=== PATIENT | male | born 1975 | race Caucasian/White ===

== ENCOUNTER 2018-01-13 15:39 | Emergency (ER) | payer SELFPAY | END 2018-01-13 15:45 | disposition left against medical advice (07) | LOC: ED 15:39 | DX: Z53.21 Procedure and treatment not carried out due to patient leaving prior to being seen by health care provider (principal) ==

== ENCOUNTER 2018-03-13 19:21 | Emergency (ER) | payer MEDICAID ==
[2018-03-13 19:39] VITALS: BP 147/92
== END 2018-03-13 21:11 | disposition left against medical advice (07) ==
LOC: ED 19:21
DX: S61.211A Laceration without foreign body of left index finger without damage to nail, initial encounter (principal); W27.8XXA Contact with other nonpowered hand tool, initial encounter; Z53.21 Procedure and treatment not carried out due to patient leaving prior to being seen by health care provider

== ENCOUNTER 2018-06-04 21:44 | Emergency (ER) | payer MEDICAID ==
[2018-06-04] MEDS: IPRATROPIUM/ALBUTEROL 3 ML NEB INH STA (22:22)
--- NOTE | 2018-06-04 22:28 | ED Physician Documentation ---
History of Present Illness - Stated complaint Stated Complaint: SOA - Chief complaint Chief Complaint: Resp - Additonal information Additional information: hx from pt 42 male has asthma out of inhaler recent cough NVD no fever BLAKE body ache + sick contact Review of Systems Constitutional: denies: Fever, Chills, Myalgias Cardiac: denies: Chest pain / pressure Respiratory: reports: Cough, Wheezing GI: reports: Vomiting, Diarrhea Endocrine: denies: Easy bruising / bleeding Immunocompromised: denies: Immunocompromised PD PAST MEDICAL HISTORY - Past Medical History Past Medical History: Yes Cardiovascular: None Respiratory: Asthma Endocrine/Autoimmune: None GI: None : None Psych: None Musculoskeletal: None Derm: None - Past Surgical History Past Surgical History: No HEENT: Myringotomy (tubes) - Present Medications Home Medications: Ambulatory Orders Medication Instructions Recorded Confirmed Albuterol Sulfate [Ventolin Hfa] 2 puffs IH Q4HR PRN 12/16/15 12/16/15 Albuterol Sulfate [Proair Hfa 2 puffs INH Q4H PRN #1 inhaler 06/04/18 Inhaler] predniSONE [Deltasone] 60 mg PO DAILY #5 tablet 06/04/18 - Allergies Allergies/Adverse Reactions: Allergies Allergy/AdvReac Type Severity Reaction Status Date / Time No Known Drug Allergies Allergy Verified 06/04/18 22:09 - Social History Does the pt smoke?: Yes Smoking Status: Current every day smoker Does the pt drink ETOH?: Yes Does the pt have substance abuse?: No - Immunizations Immunizations are current?: Yes Immunizations: TDAP current <10years - POLST Patient has POLST: No PD ED PE NORMAL - Vitals Vital signs reviewed: Yes - Neck Neck: Supple, no meningeal sign - Cardiac Cardiac: RRR - Respiratory Respiratory: No respiratory distress, Other (giulia wheezing) - Derm Derm: Normal color - Extremities Extremities: No deformity, No edema, No calf tenderness / cord - Neuro Neuro: Alert and oriented X 3 Eye Opening: Spontaneous Motor: Obeys Commands Verbal: Oriented GCS Score: 15 Results - Vitals Vitals: Vital Signs - 24 hr 06/04/18 06/04/18 06/04/18 22:00 22:22 23:50 Temperature 36.2 C L Heart Rate 61 82 82 Respiratory 24 24 18 Rate Blood Pressure 147/110 H 134/98 H O2 Saturation 97 94 Oxygen O2 Source Room air - Labs Labs: Laboratory Tests 06/04/18 23:10 Influenza A (Rapid) Negative Influenza B (Rapid) Negative - Rads (name of study) CXR Radiology: See rad report (stable /neg) PD MEDICAL DECISION MAKING - ED course ED course: much better after nebs Departure - Departure Disposition: Home, Self Care Clinical Impression: Bronchitis Asthma Qualifiers: Asthma severity: unspecified severity Asthma persistence: intermittent Asthma complication type: with acute exacerbation Qualified Code(s): J45.21 - Mild intermittent asthma with (acute) exacerbation Condition: Good Instructions: ED Bronchitis Asthmatic Prescriptions: Albuterol Sulfate [Proair Hfa Inhaler] 2 puffs INH Q4H PRN #1 inhaler PRN Reason: Shortness Of Air/Wheezing predniSONE [Deltasone] 60 mg PO DAILY #5 tablet Comments: The xray shows no pneumonia and the flu swabs were negative. I have prescribed steroids and a new inhaler but antibiotics are not indicated Please get your blood pressure rechecked when you are feeling better - it was high today Forms: Activity restrictions
[2018-06-04] MEDS: DEXAMETHASONE 10 MG/ML VIAL PO STA (22:35)
[2018-06-04] MEDS ORDERED: CHERRY SYRUP 10 ML UDC PO ONE (22:37)
--- NOTE | 2018-06-04 23:02 | XRAY Report ---
Reason: cough wheeze Procedure Date: 06/04/2018 Accession Number: [id number] / [id number] Procedure: XR - Chest 2 View X-Ray CPT Code: 66293 FULL RESULT: EXAM: CHEST RADIOGRAPHY EXAM DATE: 06/04/2018 10:55 PM. CLINICAL HISTORY: Cough, wheeze. COMPARISON: CHEST 2 VIEW PA/LAT 08/21/2013 6:11 PM. TECHNIQUE: 2 views. FINDINGS: Lungs/Pleura: No focal opacities evident. No pleural effusion. No pneumothorax. Normal volumes. Mediastinum: Heart and mediastinal contours are unremarkable. Other: None. IMPRESSION: Stable negative 2-view chest radiography. RADIA
[2018-06-04 23:52] VITALS: BP 134/98
== END 2018-06-04 23:50 | disposition home or self-care (01) ==
LOC: ED 21:44
DX: J40 Bronchitis, not specified as acute or chronic (principal); J45.21 Mild intermittent asthma with (acute) exacerbation; F17.200 Nicotine dependence, unspecified, uncomplicated
CPT/HCPCS: 71046; 87275; 87276; 94640; 99283

== ENCOUNTER 2019-02-11 17:25 | Emergency (ER) | payer MEDICAID ==
--- NOTE | 2019-02-11 17:36 | ED Physician Documentation ---
History of Present Illness - Stated complaint Stated Complaint: TOOTH PX - Chief complaint Chief Complaint: Heent - History obtained from History obtained from: Patient - Additonal information Additional information: Patient is a 43-year-old male presenting with left upper molar discomfort over the past several weeks without particular inciting incident or injury. Patient reports he has not been to the dentist for several years, but has appointment on Saturday, which is less than 2 days from now. Patient reports facial swelling and erythema to that area, but no significant gum changes. Patient denies fever, difficulty with swallowing or breathing. Patient states pain refers back to his left ear and jaw. Patient also requesting refill for albuterol inhaler. No other improving or worsening factors noted. Review of Systems Constitutional: denies: Fever Ears: reports: Ear pain. denies: Drainage/discharge Throat: reports: Dental pain / toothache. denies: Sore throat Respiratory: denies: Dyspnea PD PAST MEDICAL HISTORY - Past Medical History Cardiovascular: None Respiratory: Asthma Endocrine/Autoimmune: None GI: None : None Psych: None Musculoskeletal: None Derm: None - Past Surgical History Past Surgical History: No HEENT: Myringotomy (tubes) - Present Medications Home Medications: Ambulatory Orders Medication Instructions Recorded Confirmed Albuterol Sulfate [Ventolin Hfa] 2 puffs IH Q4HR PRN 12/16/15 12/16/15 Albuterol Sulfate [Proair Hfa 2 puffs INH Q4H PRN #1 inhaler 06/04/18 Inhaler] predniSONE [Deltasone] 60 mg PO DAILY #5 tablet 06/04/18 Albuterol Sulf [Ventolin Hfa 1 - 2 puffs INH Q4HR PRN #1 inhaler 02/11/19 Inhaler] Amox/Clav 875/125 [Augmentin] 1 each PO Q12H 7 Days tablet 02/11/19 - Allergies Allergies/Adverse Reactions: Allergies Allergy/AdvReac Type Severity Reaction Status Date / Time No Known Drug Allergies Allergy Verified 02/11/19 17:31 - Social History Does the pt smoke?: Yes Smoking Status: Current every day smoker Does the pt drink ETOH?: Yes Does the pt have substance abuse?: No - Immunizations Immunizations are current?: Yes Immunizations: TDAP current <10years - POLST Patient has POLST: No PD ED PE NORMAL - Vitals Vital signs reviewed: Yes - General General: Alert and oriented X 3, No acute distress, Well developed/nourished - HEENT HEENT: Atraumatic, Ears normal, Moist mucous membranes, Pharynx benign, Other (No trismus. Tenderness to left upper molar only with no obvious dental caries, fracture, avulsion or other injury. Mild gum swelling without erythema to this area only. Remainder of intraoral exam within normal limits.No significant facial swelling, erythema or other changes noted.). No: Dentition benign - Neck Neck: Supple, no meningeal sign - Respiratory Respiratory: No respiratory distress - Derm Derm: Normal color, Warm and dry, No rash - Extremities Extremities: No deformity, No tenderness to palpate - Neuro Neuro: Alert and oriented X 3, No motor deficit, No sensory deficit - Psych Psych: Normal mood, Normal affect Results - Vitals Vitals: Vital Signs - 24 hr 02/11/19 17:29 Temperature 36.7 C Heart Rate 80 Respiratory 18 Rate Blood Pressure 171/124 H O2 Saturation 95 Oxygen O2 Source Room air PD MEDICAL DECISION MAKING - ED course Complexity details: considered differential, d/w patient, d/w family ED course: Patient presenting with isolated left upper molar tooth pain which may be related to dental abscess. Patient reports symptoms that include facial swelling erythema, although none found today. Do not have high suspicion for facial cellulitis or abscess at this time. Additionally, do not find evidence of tonsillitis, pharyngitis, peritonsillar abscess, retropharyngeal abscess, otitis media or externa, mastoiditis. Patient has dentistry follow-up within the next day or so. Discussed use of antibiotics for possible dental abscess, as well as other oral hygiene recommendations. Patient also requesting refill of albuterol inhaler for his known asthma. Patient received Toradol in the ED. Patient otherwise voiced understanding and is comfortable with discharge plan. Departure - Departure Disposition: 01 Home, Self Care Clinical Impression: Dental abscess Condition: Good Instructions: ED Abscess Dental Follow-Up: your,dentist [Other] - Within 3 Days Prescriptions: Albuterol Sulf [Ventolin Hfa Inhaler] 1 - 2 puffs INH Q4HR PRN #1 inhaler PRN Reason: Shortness Of Air/Wheezing Amox/Clav 875/125 [Augmentin] 1 each PO Q12H 7 Days tablet Comments: Please follow-up with dentistry on Saturday as scheduled. Recommend regular tooth brushing, flossing, Listerine in general good oral hygiene. Please avoid chewing, tobacco, vaping or other irritants to the area. May use ibuprofen/Tylenol as needed, as well as ice application. Please take in a biotics as prescribed for possible infection. May use albuterol inhaler as needed for asthma. Otherwise, follow-up with primary care physician in next 2 to 3 days and return to ED sooner if experience worsening symptoms or have other concerns.
[2019-02-11] MEDS ORDERED: KETOROLAC 60 MG/2 ML VIAL IM STA (17:41)
[2019-02-11 18:13] VITALS: BP 173/120
== END 2019-02-11 18:15 | disposition home or self-care (01) ==
LOC: ED 17:25
DX: K04.7 Periapical abscess without sinus (principal); F17.200 Nicotine dependence, unspecified, uncomplicated
CPT/HCPCS: 96372; 99283

== ENCOUNTER 2021-11-29 05:58 | Emergency (ER) | payer MEDICAID ==
--- NOTE | 2021-11-29 07:04 | ED Physician Documentation ---
PD HPI UPPER EXT INJURY - Stated complaint Stated Complaint: HEAD INJURY/EAR PX/DIZZY - Chief complaint Chief Complaint: Ext Problem - History obtained from History obtained from: Patient - Additonal information Additional information: Patient is a 45-year-old male with a history of hypertension presenting for evaluation of injury to his right second finger that occurred 1 month ago. Patient accidentally cut himself with a knife. He did not seek medical attention at that time.Since then he has noticed swelling to the area of laceration. He denies any abnormal drainage.He is able to flex the fi ngerWithout significant pain. He denies fever. He denies worsening swelling. He also reports having aPustule to the top of his head that had recently drained pus and been healing but this morning he accidentally bumped his head against the wall And scraped the wound on a screw. He denies loss of consciousness. He has not been taking his blood pressure medication for the last month as he ran out of it. He does report intermittently having episodes of feeling lightheaded. He currently denies feeling lightheaded and was able to ambulate without difficulty to the emergency department. He denies blurred vision, headache, chest pain, difficulty breathing, abdominal pain, leg swelling.He is unsure of his last tetanus. Review of Systems Constitutional: denies: Fever Nose: denies: Congestion Cardiac: denies: Chest pain / pressure, Palpitations Respiratory: denies: Dyspnea, Cough GI: denies: Abdominal Pain, Nausea, Vomiting : denies: Dysuria Skin: reports: Abrasion (s), Laceration (s) Musculoskeletal: reports: Joint swelling. denies: Neck pain, Back pain Neurologic: reports: Head injury. denies: Syncope, Headache PD PAST MEDICAL HISTORY - Past Medical History Past Medical History: Yes Cardiovascular: Hypertension Respiratory: Asthma Neuro: None Endocrine/Autoimmune: None GI: None : None HEENT: None Psych: None Musculoskeletal: None Derm: None - Past Surgical History Past Surgical History: Yes General: Other HEENT: Myringotomy (tubes) - Present Medications Home Medications: Ambulatory Orders Medication Instructions Recorded Confirmed Albuterol Sulfate [Proair Hfa 2 puffs INH Q4H PRN #1 inhaler 06/04/18 Inhaler] Lisinopril [Zestril] 20 mg PO DAILY #30 tablet 11/29/21 Sulfamethox/Trimeth 800/160 1 tablet PO BID 7 Days #14 tablet 11/29/21 [Bactrim Ds] cephALEXin [Keflex] 500 mg PO Q6H #28 cap 11/29/21 - Allergies Allergies/Adverse Reactions: Allergies Allergy/AdvReac Type Severity Reaction Status Date / Time No Known Drug Allergies Allergy Verified 11/29/21 06:16 - Social History Does the pt smoke?: Yes Smoking Status: Current every day smoker Does the pt drink ETOH?: Yes Does the pt have substance abuse?: No - Immunizations Immunizations are current?: Yes Immunizations: TDAP current <10years - POLST Patient has POLST: No PD ED PE NORMAL - General General: Alert and oriented X 3, No acute distress, Well developed/nourished - HEENT HEENT: PERRL, Moist mucous membranes, Pharynx benign, Other (Abrasion to top of scalp with mild surrounding erythema, no fluctuance, no abnormal drainage) - Neck Neck: Supple, no meningeal sign, No bony TTP, C-Spine cleared by NEXUS criteria - Cardiac Cardiac: RRR, No murmur, Strong equal pulses - Respiratory Respiratory: No respiratory distress, Clear bilaterally - Abdomen Abdomen: Normal bowel sounds, Soft, Non tender - Derm Derm: Warm and dry - Extremities Extremities: Other (Mild tenderness and swelling to right second finger at PIP With faint erythema, Healing laceration, No purulence, no fluctuance, no tenderness along tendon sheath, able to flex and extend without significant pain, entire digit is not involved, brisk cap refill) - Neuro Neuro: Alert and oriented X 3, dual rate dealer 2-12 intact, No motor deficit, No sensory deficit, Normal speech Eye Opening: Spontaneous Motor: Obeys Commands Verbal: Oriented GCS Score: 15 - Psych Psych: Normal mood PD ED PE EXPANDED - HEENT HEENT Visual: 1 - abrasion (2 cm) - Extremities REINALDO UE/Hands Visual: 1 - laceration, swelling, tenderness Results - Vitals Vitals: Vital Signs - 24 hr 11/29/21 11/29/21 06:12 07:23 Temperature 36.2 C L 36.8 C Heart Rate 106 H 94 Respiratory 17 20 Rate Blood Pressure 151/114 H 179/100 H O2 Saturation 100 100 Oxygen O2 Source Room air PD MEDICAL DECISION MAKING - ED course Complexity details: reviewed results, re-evaluated patient, d/w patient ED course: Patient presenting for evaluation of previous injury to his right index finger as well as injury to scalp. Regards to his finger, injury occurred a few weeks ago. Laceration is healing. There is mild swelling and tenderness around the site of the laceration with mild overlying erythema. There is no fluctuance. There is no tenderness along the tendon sheath to suggest flexor tenosynovitis or deep space infection.Patient also has superficial wound to his scalp. Do not think he needs a head CT for this head injury as there is no LOC and neurologic exam is normal. We will start patient on oral antibiotics for cellulitis.X-ray was negative for signs of fracture or foreign body. Patient also reports inte rmittent episodes of feeling lightheaded although currently without symptoms.He has been off his blood pressure medication for the last month as he has ran out of his medication. Patient has no symptoms currently to suggest hypertensive urgency or emergency. I will give him a 1 month refill and also given information for PCP as he does not currently have one.Patient is aware of strict return precautions for new or worsening symptoms. Departure - Departure Disposition: 01 Home, Self Care Clinical Impression: Cellulitis of right index finger, Medication refill Scalp abrasion Qualifiers: Encounter type: initial encounter Qualified Code(s): S00.01XA - Abrasion of scalp, initial encounter Condition: Stable Instructions: ED Infec Skin Cellulitis, ED HTN Established Follow-Up: Vickey Harris MD [Provider Admit Priv/Credential] - Prescriptions: Sulfamethox/Trimeth 800/160 [Bactrim Ds] 1 tablet PO BID 7 Days #14 tablet cephALEXin [Keflex] 500 mg PO Q6H #28 cap Lisinopril [Zestril] 20 mg PO DAILY #30 tablet Comments: Jamel - You were evaluated for a few concerns today including a wound to your scalp and to your right finger. I believe these wounds are infected and I have started you on antibiotics to help with the infection. Prescriptions for this were sent to the [facility] pharmacy in [place]. You have also been off your blood pressure medication for the last month and your blood pressure is elevated. I have sent a 1 month refill of your blood pressure medication also to [facility]. Please start taking these medications today as prescribed. You also need to reestablish care with a primary care doctor.I have included the name of a physician that you can call for an appointment if you do not have 1. If it anytime it seems that your wounds are looking worse such as increased redness, swelling, abnormal drainage or pain or you have any new symptoms such as worsening headache, blurred vision, chest pain or difficulty breathing please return to the emergency department. Forms: Activity restrictions Discharge Date/Time: 11/29/21 07:27
[2021-11-29] MEDS: cephALEXin 250 MG CAPSULE PO STA (07:06)
[2021-11-29] MEDS: SULFAMETH/TRIMETH DS 800/160 MG TABLET PO STA (07:06)
[2021-11-29] MEDS: TETANUS/DIPHTHERIA/PERTUSSIS 0.5 ML SYRINGE IM ONE (07:06)
[2021-11-29 07:23] VITALS: BP 179/100
--- NOTE | 2021-11-29 14:56 | XRAY Report ---
PROCEDURE: Hand 3 View RT INDICATIONS: trauma to index finger TECHNIQUE: 3 views of the hand(s) acquired. COMPARISON: None FINDINGS: Bones: No fractures or dislocations. No suspicious bony lesions. Soft tissues: No suspicious soft tissue calcifications. IMPRESSION: No visualized acute fracture or dislocation. However, occult injury cannot be excluded. Recommend vishal rt interval imaging follow-up in 7-10 days as clinically indicated for additional evaluation. The above findings are concordant with preliminary report. Reviewed by: Nelly Hernandez MD on 11/29/2021 2:55 PM PDT Approved by: Nelly Hernandez MD on 11/29/2021 2:55 PM PDT Station ID: [id number]
== END 2021-11-29 07:27 | disposition home or self-care (01) ==
LOC: ED 05:58
DX: L03.011 Cellulitis of right finger (principal); I10 Essential (primary) hypertension; S00.01XA Abrasion of scalp, initial encounter; W22.8XXA Striking against or struck by other objects, initial encounter; F17.200 Nicotine dependence, unspecified, uncomplicated; Z23 Encounter for immunization; Z71.85 Encounter for immunization safety counseling
CPT/HCPCS: 73130; 90471; 90715; 99282; 99283; A9270

== ENCOUNTER 2022-02-06 23:28 | Emergency (ER) | payer MEDICAID ==
[2022-02-07] MEDS ORDERED: CYCLOBENZAPRINE 10 MG Prepack 2 PO STA (01:07)
[2022-02-07] MEDS ORDERED: IBUPROFEN 600 MG TABLET PO STA (01:08)
[2022-02-07] MEDS ORDERED: LIDOCAINE PATCH 5% TOP STA (01:08)
--- NOTE | 2022-02-07 01:10 | ED Physician Documentation ---
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 He did take some time off but this past weekend was tearing off a roof which she feels exacerbated it. He denies any falls or known injuries. He does have a history of back issues from when he worked at the [employer] and was recommended to do physical therapy which she did not. Pain is sharp and aching and worse with certain movements and better at rest. He has not taken anything for the pain. He denies fever, headache, chest pain, trouble breathing, abdominal pain, vomiting or diarrhea. He denies bowel or bladder incontinence, IV drug use, Leg pain. Review of Systems Constitutional: denies: Fever Nose: denies: Congestion Throat: denies: Sore throat Cardiac: denies: Chest pain / pressure Respiratory: denies: Dyspnea GI: denies: Abdominal Pain, Vomiting : denies: Dysuria, Hematuria Skin: denies: Rash Musculoskeletal: reports: Back pain. denies: Neck pain, Extremity pain Neurologic: denies: Generalized weakness, Numbness, Headache PD PAST MEDICAL HISTORY - Past Medical History Past Medical History: Yes Cardiovascular: None Respiratory: Asthma Neuro: None Endocrine/Autoimmune: None GI: None : None HEENT: None Psych: None Musculoskeletal: None Derm: None - Past Surgical History Past Surgical History: No General: Other HEENT: Myringotomy (tubes) - Present Medications Home Medications: Ambulatory Orders Medication Instructions Recorded Confirmed Albuterol Sulfate [Proair Hfa 2 puffs INH Q4H PRN #1 inhaler 06/04/18 Inhaler] Lisinopril [Zestril] 20 mg PO DAILY #30 tablet 11/29/21 Sulfamethox/Trimeth 800/160 1 tablet PO BID 7 Days #14 tablet 11/29/21 [Bactrim Ds] cephALEXin [Keflex] 500 mg PO Q6H #28 cap 11/29/21 Cyclobenzaprine [Flexeril] 10 mg PO TID PRN #20 tablet 02/07/22 Ibuprofen 600 mg PO Q8HR PRN #30 tablet 02/07/22 Lidocaine Patch 5% [Lidoderm Patch] 1 patch TOP DAILY PRN #10 patch 02/07/22 - Allergies Allergies/Adverse Reactions: Allergies Allergy/AdvReac Type Severity Reaction Status Date / Time No Known Drug Allergies Allergy Verified 02/06/22 23:38 - Social History Does the pt smoke?: Yes Smoking Status: Current every day smoker Does the pt drink ETOH?: Yes Does the pt have substance abuse?: No - Immunizations Immunizations are current?: Yes Immunizations: TDAP current <10years - POLST Patient has POLST: No PD ED PE NORMAL - General General: Alert and oriented X 3, No acute distress, Well developed/nourished - HEENT HEENT: Atraumatic, Moist mucous membranes - Neck Neck: Supple, no meningeal sign - Cardiac Cardiac: RRR, Strong equal pulses - Respiratory Respiratory: No respiratory distress, Clear bilaterally - Abdomen Abdomen: Normal bowel sounds, Soft, Non tender, Non distended - Back Back: Other (Mild low lumbar tenderness to palpation with no bony step-offs, no rash; Distal pulses intact). 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 No falls or reported trauma. Vital signs are stable. Normal neuro exam. Patient is ambulatory and well-appearing, In no distress. Patient in agreement that x-ray would not likely be helpful this evening. Agreeable with plan for trial of Medications with outpatient follow-up. Patient advised on strict return precautions. Departure - Departure Disposition: 01 Home, Self Care Clinical Impression: Low back strain Qualifiers: Encounter type: initial encounter Qualified Code(s): S39.012A - Strain of muscle, fascia and tendon of lower back, initial encounter Condition: Stable Instructions: ED Low Back Pain Injury Prescriptions: Ibuprofen 600 mg PO Q8HR PRN #30 tablet PRN Reason: Pain Cyclobenzaprine [Flexeril] 10 mg PO TID PRN #20 tablet PRN Reason: Spasms Lidocaine Patch 5% [Lidoderm Patch] 1 patch TOP DAILY PRN #10 patch PRN Reason: pain Comments: You were evaluated for pain to your low back. Based on the history provided I do not think you have a broken bone in your back and do not think an x-ray would be helpful. This pain is likely related to strain of the muscles or ligaments or possibly the discs in the lumbar region. Will prescribe some medications that may help with this pain including an anti-inflammatory, lidocaine patch and a muscle relaxer. Please avoid any activities or jobs that may exacerbate the pain and have close follow-up with your primary care doctor. If you have any worsening symptoms or new symptoms such as trouble walking, increased pain, fever, abdominal pain or chest pain, trouble controlling your bowel or bladder then please return to the emergency department. I have sent your prescriptions to [facility]. Discharge Date/Time: 02/07/22 01:17
[2022-02-07 01:19] VITALS: BP 130/79
== END 2022-02-07 01:17 | disposition home or self-care (01) ==
LOC: ED 23:28
DX: S39.012A Strain of muscle, fascia and tendon of lower back, initial encounter (principal); Y93.H3 Activity, building and construction; Y99.9 Unspecified external cause status
CPT/HCPCS: 99282; 99283; A9270

== ENCOUNTER 2023-02-11 12:40 | Emergency (ER) | payer MEDICAID ==
[2023-02-11 12:54] VITALS: BP 150/90
[2023-02-11] MEDS ORDERED: CLINDAMYCIN 150 MG CAPSULE PO STA (13:50)
[2023-02-11] MEDS ORDERED: BUFFERED LIDOCAINE 10 ML SYRINGE SUBQ STA (13:50)
--- NOTE | 2023-02-11 13:52 | ED Physician Documentation ---
PD HPI WOUND RECHECK - Stated complaint Stated Complaint: RT LEG WOUND - Chief complaint Chief Complaint: Wound - Histroy obtained from History obtained from: Patient - Additional information Additional information: He has had a wound on his right thigh that he thinks is a spider bite for the last 3 weeks. He tried to pop it himself several times without success. No fevers. No history of MRSA. PD PAST MEDICAL HISTORY - Past Medical History Cardiovascular: None Respiratory: Asthma Neuro: None Endocrine/Autoimmune: None GI: None : None HEENT: None Psych: None Musculoskeletal: None Derm: None - Past Surgical History Past Surgical History: No General: Other HEENT: Myringotomy (tubes) - Present Medications Home Medications: Ambulatory Orders Medication Instructions Recorded Confirmed Albuterol Sulfate [Proair Hfa 2 puffs INH Q4H PRN #1 inhaler 06/04/18 Inhaler] Lisinopril [Zestril] 20 mg PO DAILY #30 tablet 11/29/21 Sulfamethox/Trimeth 800/160 1 tablet PO BID 7 Days #14 tablet 11/29/21 [Bactrim Ds] cephALEXin [Keflex] 500 mg PO Q6H #28 cap 11/29/21 Cyclobenzaprine [Flexeril] 10 mg PO TID PRN #20 tablet 02/07/22 Ibuprofen 600 mg PO Q8HR PRN #30 tablet 02/07/22 Lidocaine Patch 5% [Lidoderm Patch] 1 patch TOP DAILY PRN #10 patch 02/07/22 clindamycin HCL [Cleocin HCl] 300 mg PO QID #28 cap 02/11/23 - Allergies Allergies/Adverse Reactions: Allergies Allergy/AdvReac Type Severity Reaction Status Date / Time No Known Drug Allergies Allergy Verified 02/11/23 12:46 - Social History Does the pt smoke?: Yes Smoking Status: Current every day smoker Does the pt drink ETOH?: Yes Does the pt have substance abuse?: No - Immunizations Immunizations are current?: Yes Immunizations: TDAP current <10years - POLST Patient has POLST: No PD ED PE NORMAL - Vitals Vital signs reviewed: Yes - General General: Alert and oriented X 3, No acute distress - Back Back: No CVA TTP, No spinal TTP - Derm Derm: Other (There is a raised purplish abscess anterior mid thigh without pain out of proportion. He has mild surrounding cellulitis.) - Neuro Neuro: Alert and oriented X 3, Normal speech Results - Vitals Vitals: Vital Signs - 24 hr 02/11/23 12:46 Temperature 36.5 C Heart Rate 100 Respiratory 16 Rate Blood Pressure 150/90 H O2 Saturation 98 Oxygen O2 Source Room air Procedures - Abscess I&D (location) R thigh Preparation: Betadine, Lidocaine 1% Incision: Incised with scalpel, Purulent drainage, Loculations broken, Culture obtained Other: Pt tolerated well, Dressing applied, Other (too small to pack) Departure - Departure Disposition: 01 Home, Self Care Clinical Impression: Abscess of right leg Condition: Good Record reviewed to determine appropriate education?: Yes Instructions: ED Abscess IandD Prescriptions: clindamycin HCL [Cleocin HCl] 300 mg PO QID #28 cap Comments: We are performing a wound culture, the results should be done in 48-72 hours. If antibiotic change is necessary we will call you. Return if worse in the meantime, especially if you develop increased pain, fevers, cannot keep down the medication. Otherwise follow-up with your physician in approximately 2-3 days. Forms: PCP List
--- OUTSIDE RECORDS SUMMARY | 2023-02-11 14:02 | EXTERNAL MEDICAL SUMMARY RPT | Continuity of Care Document ---
Author Name Unknown Address [address] [place] [address] Phone Organization [facility] Address [address] [place] [address] Phone Care Team Providers Care Corn Husk Baler Name Role Phone Elieser, Daphne Unavailable Unavailable Allergies and Intolerances date description facility reaction severity (no date) No Known Drug Allergies [facility] (no ewelina ction) (no severity) Problems date description facility 2023-01-30 00:00 Patient left without being seen [facility] Social History date description facility 2023-01-30 00:00 Smokes tobacco daily (finding) [facility] Vital Signs date measurement value units 2023-01-30 00:00 BMI 27.0 kg/m2 2023-01-30 00:00 BP_diastolic 99 mmHg 2023-01-30 00:00 BP_systolic 155 mmHg 2023-01-30 00:00 heart_rate 102 /min 2023-01-30 00:00 height_metric 185.42 cm 2023-01-30 00:00 height_standard 73 in 2023-01-30 00:00 o2_saturation 100 % 2023-01-30 00:00 respiration_rate 15 /min 2023-01-30 00:00 temperature_metric 36.78 C 2023-01-30 00:00 temperature_standard 98.2 F 2023-01-30 00:00 weight_metric 92.98 kg 2023-01-30 00:00 weight_standard 204.99 lb
--- NOTE | 2023-02-13 11:45 | ED Physician Documentation ---
ED Addendum - Addendum Addendum: 02/13/23 11:44 Wound culture reviewed, MRSA that is resistant to both Bactrim and clindamycin. Only oral option is linezolid and I did send a prescription for linezolid 600 mg p.o. twice daily for 10 days to [facility]. I left a voicemail at the phone number on the chart for him to call us back for results.
== END 2023-02-11 14:46 | disposition home or self-care (01) ==
LOC: ED 12:40
DX: L02.415 Cutaneous abscess of right lower limb (principal); B95.62 Methicillin resistant Staphylococcus aureus infection as the cause of diseases classified elsewhere; Z16.39 Resistance to other specified antimicrobial drug; F17.200 Nicotine dependence, unspecified, uncomplicated; Z79.899 Other long term (current) drug therapy
CPT/HCPCS: 10060; 87070; 87181; 87205; 99283; A9270